=== PATIENT | female | born 2000 | race Caucasian/White ===

== ENCOUNTER 2021-06-22 18:44 | Emergency (ER) | payer OTHER, SELFPAY ==
[2021-06-22 18:54] VITALS: BP 143/93; PULSE 105; RESP 20; TEMP 38.1; O2SAT 100
--- NOTE | 2021-06-22 19:18 | ED.URI ---
HPI - URI/Sore Throat General Chief Complaint: Upper Respiratory Infection Stated Complaint: rash all over and sore throat Time Seen by Provider: 06/22/21 19:18 Source: patient and RN notes reviewed Mode of arrival: ambulatory Limitations: no limitations History of Present Illness HPI Narrative: 20-year-old female presents to the [facility] with a rash and a sore throat. Patient states she started with a rash to her feet, palms of hands and in her mouth on Monday night or early Monday. Has been exposed to several young children. Concern for strep throat. No treatment prior to arrival Has fever. Related Data Home Medications Medication Instructions Recorded Confirmed No Home Medications 06/22/21 06/22/21 Allergies Allergy/AdvReac Type Severity Reaction Status Date / Time No Known Allergies Allergy Verified 06/22/21 19:24 Review of Systems Review of Systems: All systems reviewed & are unremarkable except as noted in HPI and below Constitutional: Constitutional: Reports as per HPI, Denies chills, Denies fatigue, Reports fever(s) and Denies weakness ENT: Reports as per HPI, Denies nasal congestion and Reports sore throat Cardiovascular: Cardiovascular: Reports no additional cardiovascular complaints and Denies chest pain Respiratory: Respiratory: Reports no additional respiratory complaints, Denies cough and Denies dyspnea Gastrointestinal: Gastrointestinal: Reports no additional gastrointestinal complaints, Denies abdominal pain, Denies diarrhea, Denies nausea and Denies vomiting Musculoskeletal: Musculoskeletal: Reports no additional musculoskeletal complaints Integumentary/Breasts: Skin/Breast: Reports rash (Sole of feet, palmar aspect, chin, circumferential mouth and in mouth) Neurologic: Reports system reviewed and no additional complaints, except as documented Psychiatric: Psychiatric: Reports no additional psychiatric complaints Allergic/Immunologic: Allergic/Immunologic: Reports no additional allergic/immunologic complaints [facility] Past Medical History Medical History No significant medical problems Surgical History Surgical History (Updated 06/22/21 @ 20:27 by Zakiya Saez) No significant past surgical history Comments At the time of my signature, I reviewed and agree with the nursing past medical, surgical, social, and family history. There is no relevant family history pertinent to the patient complaint. Exam Const: General: healthy appearing, no acute distress and alert Orientation/consciousness: patient oriented x3 Limitations: no limitations HENMT: Head: normal to inspection Ears: external ears normal, TM's normal bilaterally and EAC's normal General nose exam: Normal external nose present Face and sinus: normal facial exam Mouth: Yes lip normal, Yes tongue normal, No mouth trauma, No muffled voice and Yes Abnormal oral and palatal mucosa present lesions; not erythematous, no white patches and no vesicles Throat: posterior oropharynx normal, tonsils normal and uvula midline Eyes: Conjunctivae: conjunctivae normal Neck: Neck: no lymphadenopathy and no meningeal signs Chest: Chest palpation & inspection: normal inspection of the chest Resp: Effort & Inspection: normal respiratory effort Cardio: Rate: regular rate Rhythm: regular rhythm : General: Yes no CVA tenderness Skin: Other: Red circular areas to the soles of feet, palmar aspect hands and in her mouth. Neuro: General: patient oriented x3, moves all extremities and no meningeal signs Speech: normal speech Gait exam (Neuro): Normal gait present Extrem: General: normal to inspection and no pedal edema Psych: Appearance: grossly normal and well kempt Mental Status: mental status grossly normal Affect: normal affect Attitude: cooperative Thought content: Yes Normal thought content present Course Course Emergency Course: Discharge instructions reviewed with lowell
== END 2021-06-22 19:30 | disposition home or self-care (01) ==
PROVIDERS: Emergency Provider Nurse Practitioner; PCP Nurse Practitioner Family
DX: B08.4 Enteroviral vesicular stomatitis with exanthem (principal)
CPT/HCPCS: 87081; 87880; 99213; G0463

== ENCOUNTER 2023-10-31 07:31 | Outpatient (CLI) | payer SELFPAY ==
--- NOTE | 2023-10-31 07:48 | ECG_ITS ---
SEE SCANNED COPY FOR CONFIRMED REPORT. MTDD
== END 2023-10-31 07:32 | disposition home or self-care (01) ==
LOC: ANHCARD 07:34
PROVIDERS: PCP Nurse Practitioner Adult Health; Visit Provider Nurse Practitioner Adult Health
DX: R00.2 Palpitations (principal)
CPT/HCPCS: 93005

== ENCOUNTER 2023-11-13 09:20 | Outpatient (CLI) | payer SELFPAY ==
--- NOTE | 2023-11-16 12:54 | P.PCNHOL_ITS ---
Holter/Event Monitor Holter/Event Monitor Date of procedure: 11/16/23 Holter/Event Procedure: 48 Hr Holter Monitor Diagnosis: Palpitations Indications: Palpitations Image/Tracing Quality: Adequate. Total analysis time of 47 hours and 59 minutes. Findin. Sinus rhythm with an average heart rate of 90 beats per minute. The minimum heart rate was 49 beats per minute. The maximum heart rate was 146 beats per minute. 2. No evidence of atrial fibrillation, SVT, heart block, or ventricular tachycardia. 3. There was an episode of sinus arrhythmia with a 1.5 second pause. However, no significant pauses. 3. PAC burden is <0.1%. 4. No PVCs found during the monitoring period. 5. Patient reported an event of heart palpitations which correlated to sinus tachycardia with an atrial pair at a heart rate of 128 beats per minute. Patient reported a second event of heart palpitations that correlated to sinus tachycard ia at a heart rate of 101 beats per minute. Conclusion: 1. Sinus rhythm with an average heart rate of 90 beats per minute. 2. No significant arrhythmias. 3. Patient's symptoms correlated to sinus tachycardia and sinus tachycardia with atrial pair as noted above.
== END 2023-11-13 09:21 | disposition home or self-care (01) ==
PROVIDERS: PCP Nurse Practitioner Adult Health; Visit Provider Nurse Practitioner Adult Health
DX: R00.2 Palpitations (principal)
CPT/HCPCS: 93225; 93226

== ENCOUNTER 2024-05-22 12:01 | Emergency (ER) | payer OTHER, SELFPAY ==
[2024-05-22 12:08] VITALS: BP 138/82; PULSE 96; RESP 16; TEMP 37.1; O2SAT 100
--- NOTE | 2024-05-22 12:20 | ED_ITS ---
HPI - URI/Sore Throat General Chief Complaint: Upper Respiratory Infection Stated Complaint: poss sinus infection History of Present Illness HPI Narrative: Patient is a 23-year-old female, past medical history significant for sinus problems, including seasonal allergies, presents to [facility] with 24 hour history of nasal congestion, postnasal drip sensation, bilateral ear fullness and vertigo when bending over to tie her shoes or when rotating her head quickly. She does notice a slight sore throat this morning and she has been a cough. She denies known sick contacts or COVID-19 exposures. She has no fevers or chills. She has not taken any medication today for symptom relief but did take 1 dose of DayQuil last night. She denies chance of . She has no other associated symptoms and denies any other modifying factors Related Data Allergies Allergy/AdvReac Type Severity Reaction Status Date / Time No Known Allergies Allergy Unverified 10/27/23 09:32 Review of Systems ENT: Comments: refer to HPI Respiratory: Comments: refer to [facility] Past Medical History Medical History Allergies Anxiety No significant medical problems Surgical History Surgical History (Updated 10/27/23 @ 09:32 by Tyson Thornton) No significant past surgical history Family History Family History (System 10/27/23 @ 09:32 by Tyson Thornton) Father Asthma Mother Disorder of thyroid Grandparent Diabetes mellitus Grandparent Depression Social History Social History (System 10/27/23 @ 09:32 by Tyson Thornton) Smoking status: Never smoker Alcohol intake: current Alcohol use details: Beer / Mixed drinks Substance use: current Lack of Transportation: No Lack of Food: Never True Current Housing: I Have Housing Concerned About Future Housing: No Difficulty Paying Gas/Electric Bills: No Difficulty Paying for Meds: No Currently Unemployed: No Education: Trade/Vocational Certificate Difficulty w/ Childcare or Family Care: No Living arrangements: with family Gender identity (if verbalized by the patient): Female Agree to blood products: Yes Exam Const: General: healthy appearing, no acute distress and alert Nutritional Appearance: obese Orientation/consciousness: patient oriented x3 Limitations: no limitations HENMT: Head: normal to inspection Ears: external ears normal and TM abnormal with fluid behind the TM bilateral and retracted Face/Nose/Sinus: Normal external nose present and Normal nares present Face and sinus: normal facial exam and sinuses nontender Mouth: Yes Normal oral and palatal mucosa present and Yes lip normal Throat: posterior oropharynx normal and uvula midline Other: cobblestone appearance to pharyngeal mucosa posteriorly, no exudate, no tonsillar hypertrophy, uvula midline Eyes: Conjunctivae: conjunctivae normal Pupils: Equal, round and reactive pupils present EOM: EOMs intact bilaterally Direct Ophthalmoscopy: no photophobia Neck: Neck: normal visual inspection, no lymphadenopathy and no meningeal signs Resp: Effort & Inspection: normal respiratory effort Auscultation: clear to auscultation bilaterally Cardio: Rate: regular rate Rhythm: regular rhythm Skin: General skin exam: normal color Rashes: no rashes Wounds: no wounds Neuro: General: patient oriented x3, moves all extremities, no meningeal signs, no focal motor deficits and CN's II-XI intact bilaterally Cranial nerves: Yes Nystagmus not present Speech: normal speech Gait exam (Neuro): Normal gait present Extrem: General: normal to inspection Course Course Emergency Course: patient's exam is consistent with a viral URI with eustachian tube dysfunction/ serous otitis media. Plan to treat with a short steroid course, cough suppressant, pushing fluids, antihistamines as directed [id number]. Follow-up PCP if her cough persists, or fevers arise. ER for condition that worsen in any way Level of Care: Express Care Visit ([id number]) Vital Signs Vital signs: Vital Signs Temperature 37.1 C 05/22/24 12:08 Pulse Rate 96 05/22/24 12:08 Respiratory Rate 16 05/22/24 12:08 Blood Pressure 138/82 05/22/24 12:08 Pulse Oximetry 100 05/22/24 12:08 Oxygen Delivery Room Air 05/22/24 12:08 Temperature 37.1 C 05/22/24 12:08 Pulse Rate 96 05/22/24 12:08 Respiratory Rate 16 05/22/24 12:08 Blood Pressure 138/82 05/22/24 12:08 Pulse Oximetry 100 05/22/24 12:08 Oxygen Delivery Room Air 05/22/24 12:08 MDM - URI/Sore Throat MDM Narrative Medical decision making narrative: prednisone, promethazine DM Differential Diagnosis Differential diagnosis: Likely upper respiratory infection, otitis media, sinusitis, viral infection and pharyngitis Discharge Plan Discharge Clinical Impression: Upper respiratory infection Qualifiers: URI type: unspecified URI Qualified Code(s): J06.9 - Acute upper respiratory infection, unspecified Acute serous otitis media Qualifiers: Laterality: bilateral Recurrence: non-recurrent Qualified Code(s): H65.03 - Acute serous otitis media, bilateral Benign paroxysmal positional vertigo Qualifiers: Laterality: bilateral Qualified Code(s): H81.13 - Benign paroxysmal vertigo, bilateral Patient Disposition: Home, Self-Care Condition: Stable Instructions: Antibiotic Form, Upper Respiratory Infection (ED), Benign Paroxysmal Positional Vertigo (ED), Fluid In The Ear (Serous Otitis Media) (ED) Additional Instructions: REST, PUSH FLUIDS, COMPLETE STEROIDS DIRECTED, USE PROMETHAZINE DM FOR COUGH SUPPRESSION, [id number] ZYRTEC OR CLARITIN MAY HELP WELL. MECLIZINE FOR DIZZINESS PRESCRIBED. FOLLOW-UP WITH YOUR PRIMARY CARE PROVIDER IF YOUR SYMPTOMS ARE NOT IMPROVING IN 3-5 DAYS. PROCEED TO THE ER IF YOUR CONDITION WORSENS IN ANY WAY. Prescriptions: New prednisone 20 mg tablet 40 mg PO DAILY 5 Days Qty: 10 0RF promethazine-DM 6.25-15 mg/5 mL syrup 5 ml PO Q4-6H PRN (Reason: cough) Qty: 118 0RF meclizine 25 mg tablet 25 mg PO TID PRN (Reason: dizziness) Qty: 20 0RF Follow-up/Referrals: Caridad Brown APRN [Primary Care Provider] - Time of Disposition: 12:30
== END 2024-05-22 12:35 | disposition home or self-care (01) ==
PROVIDERS: Emergency Provider Nurse Practitioner Family; PCP Nurse Practitioner Adult Health
DX: J06.9 Acute upper respiratory infection, unspecified (principal); H81.13 Benign paroxysmal vertigo, bilateral; H65.03 Acute serous otitis media, bilateral
CPT/HCPCS: 99213; G0463

== ENCOUNTER 2024-07-01 10:00 | Emergency (ER) | payer OTHER, SELFPAY ==
[2024-07-01 10:05] VITALS: BP 135/84; PULSE 117; RESP 20; TEMP 36.8; O2SAT 100
--- NOTE | 2024-07-01 10:56 | ED.NAVMDI ---
HPI - Nausea/Vomiting/Diarrhea General Chief complaint: Nausea/Vomiting/Diarrhea Stated complaint: nausea/diarrhea Time Seen by Provider: 07/01/24 10:30 Source: patient, RN notes reviewed and old records reviewed Mode of arrival: ambulatory Limitations: no limitations History of Present Illness HPI Narrative: 23 year old female who [facility] with complaints of nause with vomiting and diarrhea since around 0230.. Patient reports no abdominal pain and has had no know fevers has had some hot flashes. Patient reports that she has vomited X4 and had diarrhea stools X3 since start of her symptoms. Patient reports no abdominal pain or any known fevers but has had hot flashes. Patient denies any evidence of blood in stools or in emesis MD elicited complaint: nausea, vomiting and diarrhea Onset (ago): hour(s) (0230) Description of vomiting: food contents and watery Description of diarrhea: watery Associated nausea: Yes Associated abdominal pain: No Severity: moderate Related Data Allergies Allergy/AdvReac Type Severity Reaction Status Date / Time No Known Allergies Allergy Verified 07/01/24 10:08 Review of Systems Review of Systems: CONSTITUTIONAL: Reports malaise,no chills, sweats, or fever, reports hot flashes EYES: Denies visual changes, redness, or discharge. ENT: Reports rhinorrhea, congestion, sinus pain, otalgia and sore throat. CARDIOVASCULAR: Denies chest pain, palpitations, or edema. RESPIRATORY: Reports cough.? Denies dyspnea. GASTROINTESTINAL: Denies abdominal pain,positive for nausea, vomiting, diarrhea, some cramping with diarrhea noted. SKIN: Denies rash or itching. MUSCULOSKELETAL: Denies myalgia. NEUROLOGIC: Denies headache. All systems reviewed & are unremarkable except as noted in HPI and below PMFSH Past Medical History Medical History No significant medical problems Anxiety Allergies Surgical History Surgical History No significant past surgical history Family History Family History Father Asthma Mother Disorder of thyroid Grandparent Diabetes mellitus Grandparent Depression Social History Social History Smoking status: Never smoker Alcohol intake: current Alcohol use details: Beer / Mixed drinks Substance use: current Lack of Transportation: No Lack of Food: Never True Current Housing: I Have Housing Concerned About Future Housing: No Difficulty Paying Gas/Electric Bills: No Difficulty Paying for Meds: No Currently Unemployed: No Education: Trade/Vocational Certificate Difficulty w/ Childcare or Family Care: No Living arrangements: with family Gender identity (if verbalized by the patient): Female Agree to blood products: Yes Comments At time of signature, agree with nursing past medical, surgical, social and family history. There is no relevant family history pertinent to the presenting complaint Exam Narrative: GENERAL: Well-appearing, well-nourished, and in no acute distress. HEAD: Normocephalic EYES: PERRLA, conjunctivae clear ENT: Nares clear, turbinates edematous and erythematous, clear discharge. Mucous membranes moist. TM pearly gates with dull light reflex bilaterally; no tragal tenderness. Oropharynx erythematous without lesions. Tonsils not enlarged and without exudate, no drooling, no hoarseness, no trismus, uvula midline.post nasal drainage NECK: Supple. No lymphadenopathy CHEST: Clear to auscultation, breath sounds equal. No wheezing, rhonchi, rales, or stridor. No respiratory distress, speaks in full sentences.no cough SAO2 100% on room air ABDOMEN: soft and nontender to palpation, no McBurney point tenderness, no distention ,bowel sounds present in all quadrants, no palpable masses HEART: Regular rate and rhythm. No murmur heard. SKIN: Warm, dry, no rash. NEURO: Alert and oriented x3. PSYCH: Normal mood and affect Course Course Emergency Course: Patient is aware of diagnosis, understands and agrees to treatment plan.? Anticipatory guidance given.? Patient agrees to follow-up as directed and is aware of reasons to seek care at the emergency department. Portions of this record may have been created with voice recognition software Level of Care: Express Care Visit Vital Signs Vital signs: Vital Signs Temperature 36.8 C 07/01/24 10:05 Pulse Rate 117 H 07/01/24 10:05 Respiratory Rate 20 07/01/24 10:05 Blood Pressure 135/84 07/01/24 10:05 Pulse Oximetry 100 07/01/24 10:05 Oxygen Delivery Room Air 07/01/24 10:05 Temperature 36.8 C 07/01/24 10:05 Pulse Rate 117 H 07/01/24 10:05 Respiratory Rate 20 07/01/24 10:05 Blood Pressure 135/84 07/01/24 10:05 Pulse Oximetry 100 07/01/24 10:05 Oxygen Delivery Room Air 07/01/24 10:05 Reviewed MDM - Nausea/Vomiting/Diarrhea Differential Diagnosis Differential diagnosis: Likely food poisoning, gastroenteritis, dehydration and other (influenza viral syndrome, COVID) Medical Records Attestation: I reviewed the patient's medical records. Lab Data Attestation: I reviewed the patient's lab results. Lab results narrative: influenza A negative, Influenza B negative,COVID negative Labs: Lab Results 07/01/24 Range/Units 11:21 POC Influenza A Ag Negative (Negative) POC Influenza B Ag Negative (Negative) POC SARS CoV-2 Ag Negative (Negative) reviewed Critical Care Time Critical Care Time Critical Care Time: No Discharge Plan Discharge Clinical Impression: Gastroenteritis Patient Disposition: Home, Self-Care Condition: Stable Instructions: Clear Liquid Diet (ED), Gastroenteritis (ED) Additional Instructions: Clear liquids for the next 8-10 hours, then advance to a bland diet as tolerated A bland diet can consist of--BRAT diet which is bananas, rice, applesauce, and toast Avoid fried, greasy, fatty, fried foods Avoid caffeine, nicotine, and alcohol Return to your regular diet in the next 3-4 days Medication as directed for nausea and vomiting Recommend Tylenol for any fever pain [id number] Imodium if develop diarrhea Follow-up with her PCP if continued problems or uncontrolled pain If your symptoms persist, change or worsen significantly before you can contact your personal physician then please, without delay, go to the emergency department for further evaluation. Follow-up with PCP in 7-10 days or sooner if needed Follow up with PCP soon in regards to your blood pressure which is elevated above threshold for referral. Blood pressure above 120/80 may indicate pre-hypertension. 135/84 Patient Language: Estonian Prescriptions: New ondansetron 4 mg tablet,disintegrating 4 mg PO Q6H PRN (Reason: nausea and vomiting) Qty: 14 0RF dicyclomine 20 mg tablet 20 mg PO TID PRN (Reason: abdominal discomfort) Qty: 20 0RF Follow-up/Referrals: Caridad Brown APRN [Primary Care Provider] - Time of Disposition: 11:33 Quality Zena Coma Scale Eyes: Open Verbal: Oriented and Alert Motor: Follows Commands Zena Coma Total Score: 15
[2024-07-01 11:23] LABS: EDCOVIDSCREEN Negative (Negative); EDINFLUASCREEN Negative (Negative); EDINFLUBSCREEN Negative (Negative)
== END 2024-07-01 11:38 | disposition home or self-care (01) ==
PROVIDERS: Emergency Provider Registered Nurse; PCP Nurse Practitioner Adult Health
DX: K52.9 Noninfective gastroenteritis and colitis, unspecified (principal); Z20.822 Contact with and (suspected) exposure to COVID-19
CPT/HCPCS: 87426; 87804; 99213; G0463